=== PATIENT | male | born 1980 | race Caucasian/White ===

== ENCOUNTER 2016-05-13 21:22 | Inpatient (IN) | payer MEDICARE ==
--- NOTE | ~2016-05-13 | CN ---
Consultation Report [facility] [address] [place]. [address] NAME: MITCHELL ZURITA : 78 STATUS : ADM Jose PAT#: [id number] AGE: 36 ADM/REG DATE : 05/13/16 MR#: [id number] REPORT SERV DATE: 05/15/16 DICTATED BY: MADI GOMEZ DATE: 05/14/16 REPORT STATUS : Draft TRANSCRIBED BY: MODCatherine DATE: 05/14/16 INFECTIOUS DISEASE CONSULT DATE OF CONSULTATION: REASON FOR CONSULT: Left foot cellulitis. HISTORY OF PRESENT ILLNESS: A 36 years old white male, with ftw-dj-uontuen diabetes and diabetic neuropathy, hypertension, transferred from [facility] ER for left foot cellulitis and left leg lymphangitis. He has had initially left second toe swelling, redness, and pain. He saw his PCP who treated him with indomethacin for possible gout. He might have had an ultrasound for DVT. He had progressive pain and then erythema and swelling of the left foot and then lymphangitic streak up the medial leg. He went to the ER at [facility] yesterday, had an x-ray of the foot that showed cellulitis and second toe proximal interphalangeal joint fusion. Lab work showed a lactic acid of 2.5, WBC 11, creatinine 1.0, acetone was negative. He was given vancomycin and maybe Zosyn there. He was then transferred here, and he was continued on vancomycin and Zosyn. Some cultures were done from the left second toe. He states he did not have any wound but it started draining yesterday, and he has had a callus on the plantar aspect of the toe. He reported no fever, but he had some nausea and maybe some softer stools. No shortness of breath. No urinary symptoms. He scratches his upper arms. PAST MEDICAL HISTORY: As I mentioned above plus prior left fibula ORIF, and umbilical hernia surgery. SOCIAL HISTORY: He is disabled. He is , has a child. He continues to smoke. He does not abuse alcohol or use drugs. FAMILY HISTORY: Not obtained yet. ALLERGIES: NONE. MEDICATIONS: At admission Xanax twice a day, Amorita as needed, indomethacin, insulin, lisinopril, and Remeron at bedtime. PHYSICAL EXAMINATION: GENERAL: He is alert, awake. HEENT: He has some oral mucosa erythema. LUNGS: Clear to auscultation. No wheezes, rhonchi, or rales. HEART: Regular rate and rhythm. ABDOMEN: Obese, soft, nontender. EXTREMITIES: Right foot without any lesions. Left foot; the lymphangitic streak resolved. He has a weak but palpable left dorsalis pedis and posterior tibial pulses. He has erythema with purpuric appearance of the left foot dorsum. Left second toe is swollen. The distal Consultation Report [address] [place]. [address] NAME: MITCHELL ZURITA : 78 STATUS : ADM Jose PAT#: [id number] AGE: 36 ADM/REG DATE : 05/13/16 MR#: [id number] REPORT SERV DATE: 05/15/16 DICTATED BY: MADI GOMEZ DATE: 05/14/16 REPORT STATUS : Draft TRANSCRIBED BY: ESTEPHANIA DATE: 05/14/16 portion of the toe has epidermal undermining with purulent material draining from there. His plantar callus, I cannot express any purulence around the callus. LABORATORY DATA: Lab work here procalcitonin 0.08, creatinine 0.7. Liver enzymes within normal limits. WBC 10, A1c almost 14. Urinalysis; no white blood cells, few bacteria. ASSESSMENT AND PLAN: 1. Left second toe cellulitis with the entire distal toe skin undermining by purulence and a plantar callus. 2. Left foot dorsum cellulitis. 3. Left leg lymphangitis which appears resolved. 4. Uyo-gt-ydlcbgs diabetes. 5. History of left ankle open reduction internal fixation, done remotely. At this point, it is hard to tell if this is a superficial skin infection or if there is any deep involvement of the joints and bone. He will probably need further imaging and maybe even surgical evaluation. He was started on vancomycin and Zosyn which is very broad- spectrum but hopefully we could further narrow it down based on wound cultures. I am not convinced anaerobic coverage is needed at this point. Of course, the patient is strongly advised about diabetes and glycemic control. WILLARD/ESTEPHANIA Madi Gomez M.D. / [id number] CC: Lacy Machado
--- NOTE | ~2016-05-13 | DS ---
Discharge Summary [address] [place]. [address] NAME: MITCHELL ZURITA : 78 STATUS : DIS IN PAT#: [id number] AGE: 36 ADM/REG DATE : 05/14/16 MR#: [id number] REPORT SERV DATE: 05/19/16 DICTATED BY: WALLACE MONTALVO DATE: 05/19/16 REPORT STATUS : Draft TRANSCRIBED BY: MODL DATE: 05/19/16 ADMISSION DATE: 05/14/2016 DISCHARGE DATE: 05/19/2016 DISCHARGE DIAGNOSES: 1. Left second toe diabetic infection. 2. Left lower extremity cellulitis. 3. Acute kidney injury, creatinine gradually worsened during the hospital stay, from 0.7 to 1.3, but the patient has good urine output. 4. Sepsis, present on admission, resolved. 5. Hypertension. 6. Uncontrolled diabetes type 2. 7. Peripheral neuropathy. 8. Smoking. CONSULTS: 1. Infectious Disease, Dr. Madi Richardson. 2. Orthopedic Surgery, Dr. Brian Larson. PROCEDURES: Bedside I and D on 05/16/2016 and 05/18/[address] Larson. HOSPITAL COURSE: This is a 36-year-old gentleman with history of uncontrolled diabetes type 2, hypertension, and smoking, who was admitted to the hospital with a diabetic left lower extremity cellulitis and infection. Please note, that I assumed care of this patient on the day of discharge. There is an excellent interim discharge summary that was dictated by our nurse practitioner, BONI Parrish. Please refer to her interim discharge summary for further details. In summary, the patient was admitted and was started on empiric antibiotics, IV Vanco and Zosyn. Throughout the hospital stay, the patient had two bedside I and D's. The wound culture of the foot was positive for strep salivarius. The patient was seen by Infectious Disease who recommended switching the antibiotics to IV Rocephin. After bedside I and D, yesterday it was felt that the patient is ready for discharge home with close outpatient followup plans. The patient is now being discharged home with home health with close outpatient followup and wound care. The patient will be maintained on p.o. Duricef for 19 additional days. Also, the patient was admitted with very poorly controlled diabetes. The patient is now being discharged with Levemir instead of the Lantus as well as sliding scale NovoLog. The patient is to follow up with Dr. Larson as well as Wound Care and PCP for close outpatient followup. DISCHARGE MEDICATIONS: 1. Please see med rec. Namely the patient was noncompliant with Lantus and the patient's insurance will pay for Levemir and thus the patient's long-acting insulin was switched to Levemir. 2. Duricef 1 g p.o. b.i.d. x19 additional days. DISPOSITION: Home with home health. Discharge Summary [address] [facility]. [address] NAME: MITCHELL ZURITA : 78 STATUS : DIS IN PAT#: [id number] AGE: 36 ADM/REG DATE : 05/14/16 MR#: [id number] REPORT SERV DATE: 05/19/16 DICTATED BY: WALLACE MONTALVO DATE: 05/19/16 REPORT STATUS : Draft TRANSCRIBED BY: ESTEPHANIA DATE: 05/19/16 FOLLOWUP: 1. Please follow up with Dr. Larson as instructed. 2. Please follow up with PCP in the next one to two weeks. 3. Please follow up with Wound Care as scheduled. A total of 25 minutes spent in coordinating this patient's discharge today. NBA/ESTEPHANIA Wallace Montalvo MD / [id number] CC: MD Iggy Gore II, PAC
--- NOTE | ~2016-05-13 | CN ---
Consultation Report [facility] [address] [place]. [address] NAME: MITCHELL ZURITA : 78 STATUS : ADM IN PAT#: [id number] AGE: 36 ADM/REG DATE : 05/14/16 MR#: [id number] REPORT SERV DATE: 05/17/16 DICTATED BY: PAN EMERSON DATE: 05/16/16 REPORT STATUS : Draft TRANSCRIBED BY: ESTEPHANIA DATE: 05/16/16 ORTHOPEDIC FOOT AND ANKLE CONSULTATION. DATE OF CONSULTATION: 05/16/2016 REASON FOR CONSULTATION: Left foot second toe plantar foot ulceration. HOSPITAL COURSE: Mitchell Zurita is a pleasant 36-year-old white male with past medical history significant for poorly controlled diabetes mellitus with peripheral neuropathy and active smoking. He developed a left foot cellulitis and left leg lymphangitis. It was seen in the [facility] ER prior to his admission to [facility]. He stated that the left second toe was "bigger than my big toe." He saw his primary care doctor, who suspected possible gout. He was placed on indomethacin. Due to the progressive pain and erythema, he was seen at the [facility] Emergency Room where he was given vancomycin and Zosyn. He was transferred to [facility] for definitive treatment. He was continued on vancomycin and Zosyn at the [facility]. Cultures were done from the left second toe. He states the toe started draining on 05/13/2016. He also states he has had a chronic callus of the second toe. REVIEW OF SYSTEMS: He was in his usual state of health at the time of the evaluation today. He denies fevers, chills, nausea, vomiting, abdominal pain, shortness of breath, or chest pain. PAST MEDICAL HISTORY: See above. PRIOR SURGICAL HISTORY: Left fibula ORIF, left second toe PIP arthrodesis, and umbilical hernia. SOCIAL HISTORY: He is disabled. He is and has a child. He continues to smoke. Does not abuse alcohol or use drugs. FAMILY HISTORY: Noncontributory. ALLERGIES: NO KNOWN DRUG ALLERGIES. MEDICATIONS: Xanax, [place] as needed, indomethacin, insulin, lisinopril, and Remeron. PHYSICAL EXAMINATION: GENERAL: Reveals an age-appropriate male, lying comfortably in his hospital bed. He is alert and oriented x3. VITAL SIGNS: His temperature is 97.6. Vital signs reveal pulse of 82 and respirations of 20. His BMI is 31.9. HEENT: Head is atraumatic. Eyes, pupils are equal to light and reactive. NECK: Nontender with full range of motion. CHEST: Nonlabored breathing. Consultation Report [facility] [address] [place]. [address] NAME: MITCHELL ZURITA : 79 STATUS : ADM IN [facility]#: [id number] AGE: 36 ADM/REG DATE : 05/14/16 MR#: [id number] REPORT SERV DATE: 05/17/16 DICTATED BY: PAN EMERSON DATE: 05/16/16 REPORT STATUS : Draft TRANSCRIBED BY: ETSEPHANIA DATE: 05/16/16 HEART: Regular rate. ABDOMEN: Nontender and nonobese. EXTREMITIES: Bilateral upper extremities nontender to full active and passive range of motion. Right lower extremity, no skin lesions. Gentle range of motion of the right hip, knee, ankle, and foot is nontender. No open skin lesions. No lymphatic streaking. Left lower extremity reveals purulent drainage surrounding his left second toe. It seems to be coming from a plantar ulcer on the plantar surface of his foot. The toe is erythematous and edematous. The large amount of skin is peeling off the dorsal and plantar aspects of the toe. No additional skin abnormalities are seen in any of the remaining toes. The PIP joint is clinically fused. The toe is tender to palpation. Cap refill is less than 2 seconds. Dorsalis pedis and posterior tibial pulses are palpable. LABORATORY DATA: Lab work reveals a white count of 8.5 and hemoglobin is 13.6. X-ray: Foot x-ray taken on 05/16/2016 is negative for osteomyelitis. He has had prior PIP arthrodesis. Prior fibular ORIF. Wound culture on two separate wound cultures taken on 05/14/2016, first one was positive for Staph and second one was positive for gram-positive cocci. Final culture results are pending. Blood cultures were negative day 1. IMPRESSION: 1. Left second toe plantar diabetic foot ulceration. 2. Smoking. 3. Peripheral neuropathy. PLAN: A lengthy discussion with the patient regarding his diagnosis and treatment options. We recommended irrigation and debridement at the bedside. All of his questions were answered and he wished to proceed. We also had a lengthy discussion with Mr. Zurita regarding the seriousness of this condition. We advised him to quit smoking immediately to improve his chances of successful healing. We talked about care of the diabetic foot. We stated that we will place him in a postoperative shoe and allow him to be limited weightbearing in the shoe. Close followup will need to be maintained with this patient. Thank you for the opportunity to participate in the care of this patient. Please refer to my operative dictation for details of the plantar foot irrigation and debridement. The foot was debrided and an Aquacel Ag dressing was placed. We recommended additional thoughts and recommendations from the wound care nurse. We have ordered a postop shoe. I would like for him to see me in my office next week for additional evaluation and treatment. My business card and phone numbers were left on the chart. Thanks for the opportunity to participate in the care of this patient. Please feel free to call me on my cell phone at [phone] with additional questions or concerns. Consultation Report [address] [place]. [address] NAME: MICTHELL ZURITA : 78 STATUS : ADM IN PAT#: [id number] AGE: 36 ADM/REG DATE : 05/14/16 MR#: [id number] REPORT SERV DATE: 05/17/16 DICTATED BY: PAN EMERSON DATE: 05/16/16 REPORT STATUS : Draft TRANSCRIBED BY: ESTEPHANIA DATE: 05/16/16 MMJeanne/ESTEPHANIA Pan Emerson MD / [id number] CC: Lacy Cartagena MD
--- NOTE | ~2016-05-13 | IDS ---
Interim Discharge Summary [facility] [address] [place]. [address] NAME: MITCHELL ZURITA : 78 STATUS : ADM IN [facility]#: [id number] AGE: 36 ADM/REG DATE : 05/14/16 MR#: [id number] REPORT SERV DATE: 05/19/16 DICTATED BY: KENTRELL THAPA DATE: 05/19/16 REPORT STATUS : Draft TRANSCRIBED BY: MODL DATE: 05/19/16 ADMISSION DATE: 05/14/2016 DISCHARGE DATE: The patient was admitted to the Hospitalist Service. CONSULTANTS: 1. Infectious Disease, Dr. Madi Richardson. 2. Orthopedics, Dr. Brian Larson. CURRENT INTERIM DIAGNOSES: 1. Left foot second toe ulcer. 2. Left lower extremity cellulitis. 3. Acute kidney injury. 4. Sepsis syndrome, resolved, present on arrival. 5. Hypertension. 6. Diabetes mellitus type 2, uncontrolled with hyperglycemia. 7. Peripheral neuropathy. 8. Nicotine dependence. PROCEDURES: 1. 05/16/2016 bedside I and D per Dr. Larson of the left second toe plantar ulceration. 2. 05/18/2016 I and D at the bedside left second toe plantar ulceration. IMAGIN05/16/2016 left foot x-ray revealed no evidence of acute left foot abnormality. LABORATORY STUDIES: 1. 05/18/2016 basic metabolic panel revealed a sodium of 144, potassium 4.3, chloride 107, CO2 of 28, BUN 14, creatinine 1.34, GFR 67, glucose 194, calcium 8.8, magnesium 2.2. 2. 05/18/2016 CBC revealed white count of 8.9, RBC 4.43, hemoglobin 12.5, hematocrit 38.1, platelets 294,000. 3. Wound culture from the second toe left foot showed sparse growth of Strep salivarius. HISTORY OF PRESENT ILLNESS: For complete history, please refer to admission H and P by Dr. Patric Diane. Briefly, Mr. Zurita is a 36-year-old male, who transferred to [facility] from [facility] with complaints of left foot pain and swelling with any noticeable red streak going up his leg. In the emergency room at [facility], he was noted to have cellulitis of the left foot and leg with a diabetic ulcer on his second toe along with hyperglycemia and a blood glucose level of 526. He was transferred to [facility] for admission to the Hospitalist Service. HOSPITAL COURSE: Mr. Zurita was admitted to a Med/Surg telemetry bed with diagnosis of a diabetic left foot ulcer and cellulitis of the left leg, diabetes with hyperglycemia, and hypertension. He was provided with 1500 calorie ADA diet. Lab work along with blood cultures x2 were obtained. Wound culture from the left foot was done initially. He was also given lactated Ringer's 1 L bolus and then 1/2 normal saline at 150 mL/h. He was given Interim Discharge Summary [facility] [address] [facility] [place]. [address] NAME: MITCHELL ZURITA : 78 STATUS : ADM IN [facility]#: [id number] AGE: 36 ADM/REG DATE : 05/14/16 MR#: [id number] REPORT SERV DATE: 05/19/16 DICTATED BY: KENTRELL THAPA DATE: 05/19/16 REPORT STATUS : Draft TRANSCRIBED BY: ESTEPHANIA DATE: 05/19/16 DVT prophylaxis with heparin 5000 units subcu t.i.d. He was provided with antiemetics and sliding scale insulin. His home medications were continued with the exception of Indocin. IV vancomycin and IV Zosyn were also ordered. Mr. Zurita was seen in consultation by Dr. Madi Richardson on 05/14/2016. A consult was placed to Dr. Monroe Henderson, the [facility]; however, the patient was seen by Dr. Brian Larson on 05/16/2016. He did have a procalcitonin level of 0.08 and a lactate level of 0.9 along with urinalysis on admission that was negative. Upon my initial evaluation of Mr. Zurita on 05/14/2016, he denied any pain in his foot or leg. He denied chest pain or shortness of breath. The only complaint he had is being hungry, therefore his 1500 calorie ADA diet was increased to 1800 calories. Mr. Zurita stated that he was seen in his primary care provider's office prior to presenting [facility]. In his primary care provider's office, he was treated for gout in his foot and given indomethacin. Over the next couple of days, his insulin was adjusted. He was seen by the tobacco prevention health educator and his A1c came back at 13.9. In addition to his nighttime basal insulin dose, I added a morning basal insulin dose. On 05/16/2016, Dr. Brian Larson performed I and D at the bedside of the patient's left foot second toe plantar ulceration. The patient required no local anesthetics as his sensation in both lower extremities and feet is severely diminished. On the evening of the 05/16/2016, Dr. Richardson discontinued IV Zosyn and added Rocephin 1 g IV daily. On 05/17/2016, upon my assessment Mr. Kidds creatinine increased overnight from 0.78 to 1.31. With this acute kidney injury, his LUCY inhibitor was discontinued. His insulin continued to be adjusted. Hydralazine 10 mg IV q.4h p.r.n. was added. On 05/17/2016, Dr. Richardson discontinued his IV vancomycin. On the afternoon of 05/18/2016, Dr. Larson once again did an I and D at the bedside of the second left toe. Mr. Zurita again tolerated without any local anesthesia. Per Dr. Larson, Mr. Zurita was okay for discharge home and follow up with him in the office in seven to ten days. Dr. Richardson recommended Duricef as the choice of oral antibiotic for Mr. Zurita. Again on 05/18/2016, Mr. Porras creatinine bump up even further from 1.31 to 1.34. Even though his LUCY inhibitor was held, his urine output was excellent. He had no new complaints. I did give him IV fluids normal saline at 100 mL/h x1 L. I did ask the nurses to go ahead and prepare for discharge and schedule followup appointments with Dr. Brian Larson orthopedic and the patient's primary care provider, Iggy Knutson. I have also requested home health care for dressing changes to the second toe left foot. Mr. Zurita is to wear postop shoe when ambulating. So at this time, disposition is pending. I have ordered a repeat basic metabolic panel for the morning to watch his creatinine. Again, his insulin has been adjusted. He will need prescriptions for Levemir and NovoLog 90 day supply at discharge as his insurance covers both of these according to the tobacco prevention health educator. His insurance does not cover Lantus. He may need another antihypertensive if his creatinine does not trend downward, but at this time disposition is home with home health care and follow up with orthopedics and primary care. RADHA/ESTEPHANIA Angela Thaap [facility] Interim Discharge Summary [address] [place] [address] NAME: MITCHELL ZURITA : 78 STATUS : ADM IN PAT#: [id number] AGE: 36 ADM/REG DATE : 05/14/16 MR#: [id number] REPORT SERV DATE: 05/19/16 DICTATED BY: KENTRELL THAPA DATE: 05/19/16 REPORT STATUS : Draft TRANSCRIBED BY: ESTEPHANIA DATE: 05/19/16 / [id number] CC: MD Eamon Gore Max Russell II
--- NOTE | ~2016-05-13 | OP ---
Record Of Operation [facility] [address] [place]. [address] NAME: MITCHELL ZURITA : 78 STATUS : ADM IN PAT#: [id number] AGE: 36 ADM/REG DATE : 05/14/16 MR#: [id number] REPORT SERV DATE: 05/16/16 DICTATED BY: PAN EMERSON DATE: 05/16/16 REPORT STATUS : Draft TRANSCRIBED BY: ESTEPHANIA DATE: 05/16/16 DATE OF PROCEDURE: 05/16/2016 PREOPERATIVE DIAGNOSES: 1. Left second toe plantar diabetic foot ulceration. 2. Diabetes mellitus with neuropathy, poorly controlled. 3. Chronic smoker. POSTOPERATIVE DIAGNOSES: 1. Left second toe plantar diabetic foot ulceration. 2. Diabetes mellitus with neuropathy, poorly controlled. 3. Chronic smoker. PROCEDURE: Irrigation and debridement down to the bone of left second toe. ANESTHESIA: None. COMPLICATIONS: None. INDICATION FOR OPERATION: Mitchell Zurita is a pleasant 36-year-old male with history of a left second toe plantar diabetic foot ulceration. Risks and benefits of the above-mentioned surgery were all discussed at length with the patient. All of his questions were answered and he wished to proceed. DESCRIPTION OF PROCEDURE: The patient's left foot was prepped and draped in the usual sterile fashion with Betadine paint. Surgical instruments were utilized including a #15 blade scalpel, surgical pickups and surgical scissors. We performed irrigation and debridement of the left second toe. He had redundant skin on the dorsal and plantar surface of the foot. All of this was removed. Revealed a plantar ulceration at the level of the DIP joint. This was approximately 1 cm in diameter. This was full thickness and involved skin, subcutaneous tissue, and deep tissues down to the tendon. Did not appear to be any active bone or joint involvement. This was a deep debridement down to the deep tissues including periosteum and deep tendon. Irrigation and sequential debridement were performed until all necrotic and devitalized tissue had been removed. Once completed, an Aquacel Ag bulky sterile dressing was applied. The patient tolerated this procedure without difficulty. He remained awake throughout the procedure, and due to his peripheral neuropathy, no anesthetic was necessary. MELODIE/ESTEPHANIA Pan Emerson MD / [id number] Record Of Operation [address] [place] [address] NAME: MITCHELL ZURITA : 78 STATUS : ADM IN PAT#: [id number] AGE: 36 ADM/REG DATE : 05/14/16 MR#: [id number] REPORT SERV DATE: 05/16/16 DICTATED BY: PAN EMERSON DATE: 05/16/16 REPORT STATUS : Draft TRANSCRIBED BY: MODL DATE: 05/16/16 CC: Lacy Cartagena M.D.
--- NOTE | ~2016-05-13 | HP ---
History And Physical [id number] [facility] [place]. [address] NAME: MITCHELL ZURITA : 78 STATUS : ADM Jose PAT#: [id number] AGE: 36 ADM/REG DATE : 05/13/16 MR#: [id number] REPORT SERV DATE: 05/14/16 DICTATED BY: PATRIC URRUTIA DATE: 05/14/16 REPORT STATUS : Draft TRANSCRIBED BY: MODL DATE: 05/14/16 DATE OF ADMISSION: 05/13/2016 CHIEF COMPLAINT: This is a 36-year-old, male, who I had accepted in transfer from [facility] after I spoke with Ms. Leanne Singh the physician's store assistant in the emergency room there. HISTORY OF PRESENT ILLNESS: Briefly, Mr. Zurita had redness and swelling developed in his left foot about a week or so ago. He saw his primary care physician or their mid-level provider who did an ultrasound of his lower extremities, determined there was no DVT and started him on indomethacin for presumed treated diagnosis of gout. Mr. Zurita took this treatment for a week but in the meantime he watched his foot swell up that was also on the second digit or second toe and he saw red line streaking up his leg as well. He also started experiencing pain in the foot and became very concerned. He decided to go to the emergency room at [facility] to have this evaluated. In the emergency room at [facility] according to Ms. Leanne Singh, he appeared to have cellulitis of the leg and foot, a diabetic foot ulcer and his blood sugar was 526 upon arrival. His workup did not reveal any ketones or acetone in the blood. His lactate was 2.5. He had white count of 11.6. X-ray of the foot did not show any osteomyelitis. He had reported elevated temperatures at home as well. He was given IV fluids and insulin, vancomycin and Zosyn for antibiotics. Current vitals prior to his transfer here were 127/70, heart rate of 112, respirations 18 a minute, room air saturations were 95%. His temperature was 98.3. At the time of my evaluation here Mr. Zurita denied any chest pain, palpitations, or orthopnea. He had no cough, hemoptysis, night sweats, or weight loss. He denied any recent falls, loss of consciousness. He does not have any recollection of chills at home but did have elevated temperatures. He denied any nausea, vomiting, diarrhea, hematemesis, hematochezia or hematuria or dysuria. No other history of recent travel or exposures other than those mentioned above. PAST MEDICAL HISTORY: Significant for history of chronic pain, diabetes mellitus, diabetic neuropathy, and hypertension. SOCIAL HISTORY: He does not drink alcohol or use recreational drugs. He has about 20-pack year history of smoking, continues to do so. He is currently disabled due to his neuropathy he has faced. FAMILY HISTORY: Noncontributory. MEDICATIONS: His medications at home were reviewed by me in the chart today and reordered by me. REVIEW OF SYSTEMS: As in history of present illness. All other systems were reviewed in detail and quite unremarkable. History And Physical [address] [place]. [address] NAME: MITCHELL ZURITA : 78 STATUS : ADM Jose PAT#: [id number] AGE: 36 ADM/REG DATE : 05/13/16 MR#: [id number] REPORT SERV DATE: 05/14/16 DICTATED BY: PATRIC URRUTIA DATE: 05/14/16 REPORT STATUS : Draft TRANSCRIBED BY: ESTEPHANIA DATE: 05/14/16 PHYSICAL EXAMINATION: GENERAL: This is a pleasant, 36-year-old, not in any acute distress. HEENT: His head is atraumatic, normocephalic. He is alert, awake, oriented to time, place, and person. Pupils are equal, reacting to light and accommodating. External ocular muscles are intact. Membranes are moist and pink. Sclerae nonicteric. NECK: Supple with no jugular venous distention, lymphadenopathy, or thyromegaly. LUNGS: Clear to auscultation with no wheezes, rubs, or crackles. HEART: Heart sounds were regular with no murmurs, rubs, or gallops. ABDOMEN: Soft, nontender. Bowel sounds are present. EXTREMITIES: Showed swelling in his left foot with redness and an ulcer in the second toe. His leg also shows streaking all the way up to his knees. There is increased warmth and pain to palpation as well. The right lower extremity shows no edema. There is no cyanosis or clubbing in the extremities. NEURO: Exam is grossly intact. No focal, sensory or motor deficits. Higher functions appeared intact. He was able to move all four extremities. VITAL SIGNS: His temperature today was 98.5 upon arrival here, pulse 94, respirations 14 a minute, blood pressure was 141/61, oxygen saturations were 94% breathing 2 L of oxygen via nasal cannula. DATA: Laboratory data and other data were reviewed by me from the records which accompanied the patient from [facility] some of which have been described above. IMPRESSION: 1. Diabetic foot ulcer. 2. Cellulitis of left lower extremity. 3. Sepsis. 4. Hyperglycemia. 5. Hypertension. 6. Chronic pain. PLAN: We will admit Mr. Zurita to the Hospitalist Service to a Med/Surg Telemetry Bed for a 24-hour observation period. After cultures are obtained, we will start him on empiric IV antibiotics, Zosyn and vancomycin. We will check his procalcitonin level. We will start him on IV fluids, start him with a bolus of lactated Ringer's and continue maintenance therapy. We will also start him on insulin per sliding scale. His blood sugars upon arrival here had come down to 256. We will also get Infectious Disease consultation on him. We will continue pain control here. The patient is already requesting Dilaudid. He will be on unfractionated heparin for DVT prophylaxis and we will continue his other medications. I have discussed above plans with the patient. His questions were answered and he is agreeable to the above recommendations. Hospitalist Service will be following him during his stay here. /ESTEPHANIA Patric Urrutia, History And Physical [address] [address] NAME: MITCHELL ZURITA : 78 STATUS : ADM Jose PAT#: [id number] AGE: 36 ADM/REG DATE : 05/13/16 MR#: [id number] REPORT SERV DATE: 05/14/16 DICTATED BY: PATRIC URRUTIA DATE: 05/14/16 REPORT STATUS : Draft TRANSCRIBED BY: ESTEPHANIA DATE: 05/14/16 Lacy / [id number] CC: Montana Pan M.D.
[~2016-05-13 21:22] MED LIST: LANTUSCART SC; NORCO1 TAB PO; XANAX1 MG PO; ZOFRAN8 PO
[2016-05-13] MEDS ORDERED: PRIN20 PO (21:48)
[2016-05-13] MEDS ORDERED: INDO50 PO (21:50)
[2016-05-13] MEDS ORDERED: REMERON45 MG PO (21:53)
[2016-05-14 06:45] LABS: BASOPHILS 0.3 %; BASOPHILS ABSOLUTE 0.03 10/3/uL (0.0-0.16); EOSINOPHILS 2.3 %; EOSINOPHILS ABSOLUTE 0.23 10/3/uL (0.0-0.53); HEMATOCRIT 36.6 % (40.0-51.0); HEMOGLOBIN 12.7 g/dL (13.6-17.8); IMMATURE GRANULOCYTES 0.3 %; IMMATURE GRANULOCYTES ABSOLUTE 0.03 10/3/uL (0.0-0.11); LYMPHOCYTES ABSOLUTE 3.19 10/3/uL (0.67-4.30); MANUAL DIFF NO %; MEAN CORPUS HGB CONC 34.7 g/dL (32.0-36.0); MEAN CORPUSCULAR HEMOGLOB 29.2 pg (26.0-34.0); MEAN CORPUSCULAR VOLUME 84.1 fL (80-100); MEAN PLATELET VOLUME 10.3 fL (9.2-13.0); MONOCYTES 8.2 %; MONOCYTES ABSOLUTE 0.82 10/3/uL (0.21-1.20); NEUTROPHILS 56.9 %; NEUTROPHILS ABSOLUTE 5.67 10/3/uL (2.02-8.40); PLATELET COUNT 281 10/3/uL (150-400); RBC DISTRIBUTION WIDTH 12.3 % (12.0-16.0); RED CELL COUNT 4.35 10/6/uL (4.7-6.1)
[2016-05-14 07:03] LABS: CALCIUM, SERUM 8.3 MG/DL (8.5-10.4); CHLORIDE, SERUM 104 MMOL/L (96-112); CO2 (CARBON DIOXIDE) 26 MMOL/L (24-34); CREATININE 0.71 MG/DL (0.70-1.30); GFR AFRICAN AMERICAN 139 ML/MIN (>=60); GFR NON AFRICAN AMERICAN 120 ML/MIN (>=60); PHOSPHORUS, SERUM 3.2 MG/DL (2.5-4.5); POTASSIUM, SERUM 3.7 MMOL/L (3.5-5.3); SGOT(AST) 9 U/L (5-40); SGPT(ALT) 15 U/L (5-65); SODIUM, SERUM 141 MMOL/L (135-148); TOTAL BILIRUBIN 0.4 MG/DL (0-1.2); TOTAL PROTEIN 6.3 G/DL (6.0-8.5)
[2016-05-14 07:04] LABS: A/G RATIO 0.8 (0.7-1.9); ALBUMIN 2.8 G/DL (3.5-5.0); ALKALINE PHOSPHATASE 105 U/L (45-117); BUN (BLOOD UREA NITROGEN) 11 MG/DL (6-23); GLOBULIN 3.5 G/DL (2.5-4.1); GLUCOSE, SERUM 192 MG/DL (60-99)
[2016-05-14 07:54] LABS: PROCALCITONIN 0.08 ng/mL (<0.5)
[2016-05-14 08:09] LABS: ASCORBIC ACID (UR NOT ORDER) NEG (NEG); BILIRUBIN, URINE NEGATIVE (NEG); KETONE, URINE NEGATIVE (NEG); LEUKOCYTE ESTERASE(NOT OR NEG (NEG); WBC (NOT ORDERED) (RFLEX) < 1 (0-5)
[2016-05-15 07:21] LABS: BASOPHILS 0.3 %; BASOPHILS ABSOLUTE 0.02 10/3/uL (0.0-0.16); EOSINOPHILS 3.7 %; EOSINOPHILS ABSOLUTE 0.27 10/3/uL (0.0-0.53); HEMATOCRIT 37.3 % (40.0-51.0); HEMOGLOBIN 12.7 g/dL (13.6-17.8); IMMATURE GRANULOCYTES 0.6 %; IMMATURE GRANULOCYTES ABSOLUTE 0.04 10/3/uL (0.0-0.11); LYMPHOCYTES 37.7 %; LYMPHOCYTES ABSOLUTE 2.73 10/3/uL (0.67-4.30); MANUAL DIFF NO %; MEAN CORPUSCULAR HEMOGLOB 28.6 pg (26.0-34.0); MEAN PLATELET VOLUME 10.5 fL (9.2-13.0); MONOCYTES 7.7 %; MONOCYTES ABSOLUTE 0.56 10/3/uL (0.21-1.20); NEUTROPHILS ABSOLUTE 3.62 10/3/uL (2.02-8.40); PLATELET COUNT 280 10/3/uL (150-400); RBC DISTRIBUTION WIDTH 12.2 % (12.0-16.0); RED CELL COUNT 4.44 10/6/uL (4.7-6.1); WHITE BLOOD CELLS 7.2 10/3/uL (4.5-10.5)
[2016-05-15 08:40] LABS: PROCALCITONIN <0.05 ng/mL (<0.5)
[2016-05-16 07:00] LABS: BASOPHILS 0.2 %; BASOPHILS ABSOLUTE 0.02 10/3/uL (0.0-0.16); EOSINOPHILS 3.2 %; EOSINOPHILS ABSOLUTE 0.27 10/3/uL (0.0-0.53); HEMOGLOBIN 13.6 g/dL (13.6-17.8); IMMATURE GRANULOCYTES 0.7 %; IMMATURE GRANULOCYTES ABSOLUTE 0.06 10/3/uL (0.0-0.11); LYMPHOCYTES 30.7 %; MEAN CORPUSCULAR HEMOGLOB 28.4 pg (26.0-34.0); MEAN CORPUSCULAR VOLUME 83.5 fL (80-100); MEAN PLATELET VOLUME 10.3 fL (9.2-13.0); MONOCYTES 7.1 %; NEUTROPHILS 58.1 %; NEUTROPHILS ABSOLUTE 4.92 10/3/uL (2.02-8.40); PLATELET COUNT 333 10/3/uL (150-400); RBC DISTRIBUTION WIDTH 12.3 % (12.0-16.0); RED CELL COUNT 4.79 10/6/uL (4.7-6.1); WHITE BLOOD CELLS 8.5 10/3/uL (4.5-10.5)
[2016-05-16 07:02] LABS: MANUAL DIFF NO %
[2016-05-16 07:40] LABS: CALCIUM, SERUM 8.9 MG/DL (8.5-10.4); CHLORIDE, SERUM 107 MMOL/L (96-112); CO2 (CARBON DIOXIDE) 29 MMOL/L (24-34); CREATININE 0.78 MG/DL (0.70-1.30); GFR AFRICAN AMERICAN 134 ML/MIN (>=60); GFR NON AFRICAN AMERICAN 115 ML/MIN (>=60); POTASSIUM, SERUM 3.8 MMOL/L (3.5-5.3); SODIUM, SERUM 143 MMOL/L (135-148); VANCOMYCIN TROUGH 16.1 MCG/ML (10.0-20.0)
[2016-05-16 07:41] LABS: BUN (BLOOD UREA NITROGEN) 6 MG/DL (6-23); GLUCOSE, SERUM 114 MG/DL (60-99)
[2016-05-17 05:43] LABS: BASOPHILS 0.4 %; BASOPHILS ABSOLUTE 0.03 10/3/uL (0.0-0.16); EOSINOPHILS 3.5 %; EOSINOPHILS ABSOLUTE 0.28 10/3/uL (0.0-0.53); HEMATOCRIT 37.9 % (40.0-51.0); HEMOGLOBIN 12.6 g/dL (13.6-17.8); IMMATURE GRANULOCYTES 0.6 %; IMMATURE GRANULOCYTES ABSOLUTE 0.05 10/3/uL (0.0-0.11); LYMPHOCYTES ABSOLUTE 2.59 10/3/uL (0.67-4.30); MEAN CORPUS HGB CONC 33.2 g/dL (32.0-36.0); MEAN CORPUSCULAR HEMOGLOB 28.5 pg (26.0-34.0); MEAN CORPUSCULAR VOLUME 85.7 fL (80-100); MEAN PLATELET VOLUME 10.3 fL (9.2-13.0); MONOCYTES 9.1 %; MONOCYTES ABSOLUTE 0.74 10/3/uL (0.21-1.20); NEUTROPHILS 54.4 %; NEUTROPHILS ABSOLUTE 4.41 10/3/uL (2.02-8.40); PLATELET COUNT 295 10/3/uL (150-400); RBC DISTRIBUTION WIDTH 12.5 % (12.0-16.0); RED CELL COUNT 4.42 10/6/uL (4.7-6.1); WHITE BLOOD CELLS 8.1 10/3/uL (4.5-10.5)
[2016-05-17 05:47] LABS: BUN (BLOOD UREA NITROGEN) 9 MG/DL (6-23); CALCIUM, SERUM 8.6 MG/DL (8.5-10.4); CHLORIDE, SERUM 106 MMOL/L (96-112); CO2 (CARBON DIOXIDE) 27 MMOL/L (24-34); POTASSIUM, SERUM 4.1 MMOL/L (3.5-5.3); SODIUM, SERUM 143 MMOL/L (135-148)
[2016-05-17 05:49] LABS: CREATININE 1.31 MG/DL (0.70-1.30); GFR AFRICAN AMERICAN 80 ML/MIN (>=60); GFR NON AFRICAN AMERICAN 69 ML/MIN (>=60); GLUCOSE, SERUM 280 MG/DL (60-99)
[2016-05-17 05:52] LABS: MANUAL DIFF NO %
[2016-05-18 05:43] LABS: BASOPHILS 0.3 %; BASOPHILS ABSOLUTE 0.03 10/3/uL (0.0-0.16); EOSINOPHILS 3.3 %; EOSINOPHILS ABSOLUTE 0.29 10/3/uL (0.0-0.53); HEMATOCRIT 38.1 % (40.0-51.0); HEMOGLOBIN 12.5 g/dL (13.6-17.8); IMMATURE GRANULOCYTES 0.6 %; IMMATURE GRANULOCYTES ABSOLUTE 0.05 10/3/uL (0.0-0.11); LYMPHOCYTES 22.3 %; LYMPHOCYTES ABSOLUTE 1.99 10/3/uL (0.67-4.30); MEAN CORPUS HGB CONC 32.8 g/dL (32.0-36.0); MEAN CORPUSCULAR HEMOGLOB 28.2 pg (26.0-34.0); MONOCYTES 9.5 %; MONOCYTES ABSOLUTE 0.85 10/3/uL (0.21-1.20); PLATELET COUNT 294 10/3/uL (150-400); RBC DISTRIBUTION WIDTH 12.6 % (12.0-16.0); RED CELL COUNT 4.43 10/6/uL (4.7-6.1); WHITE BLOOD CELLS 8.9 10/3/uL (4.5-10.5)
[2016-05-18 05:44] LABS: MANUAL DIFF NO %
[2016-05-18 05:59] LABS: CALCIUM, SERUM 8.8 MG/DL (8.5-10.4); CHLORIDE, SERUM 107 MMOL/L (96-112); CO2 (CARBON DIOXIDE) 28 MMOL/L (24-34); CREATININE 1.34 MG/DL (0.70-1.30); GFR AFRICAN AMERICAN 78 ML/MIN (>=60); GFR NON AFRICAN AMERICAN 67 ML/MIN (>=60); POTASSIUM, SERUM 4.3 MMOL/L (3.5-5.3); SODIUM, SERUM 144 MMOL/L (135-148)
[2016-05-18 06:00] LABS: BUN (BLOOD UREA NITROGEN) 14 MG/DL (6-23); GLUCOSE, SERUM 194 MG/DL (60-99)
[2016-05-19 08:31] LABS: BASOPHILS 0.3 %; BASOPHILS ABSOLUTE 0.03 10/3/uL (0.0-0.16); EOSINOPHILS 3.3 %; EOSINOPHILS ABSOLUTE 0.32 10/3/uL (0.0-0.53); HEMATOCRIT 39.3 % (40.0-51.0); HEMOGLOBIN 13.2 g/dL (13.6-17.8); IMMATURE GRANULOCYTES 0.5 %; IMMATURE GRANULOCYTES ABSOLUTE 0.05 10/3/uL (0.0-0.11); LYMPHOCYTES 24.5 %; LYMPHOCYTES ABSOLUTE 2.35 10/3/uL (0.67-4.30); MEAN CORPUS HGB CONC 33.6 g/dL (32.0-36.0); MEAN CORPUSCULAR HEMOGLOB 28.6 pg (26.0-34.0); MEAN CORPUSCULAR VOLUME 85.1 fL (80-100); MONOCYTES 8.1 %; MONOCYTES ABSOLUTE 0.78 10/3/uL (0.21-1.20); NEUTROPHILS 63.3 %; NEUTROPHILS ABSOLUTE 6.07 10/3/uL (2.02-8.40); PLATELET COUNT 305 10/3/uL (150-400); RBC DISTRIBUTION WIDTH 12.7 % (12.0-16.0); RED CELL COUNT 4.62 10/6/uL (4.7-6.1); WHITE BLOOD CELLS 9.6 10/3/uL (4.5-10.5)
[2016-05-19 08:32] LABS: MANUAL DIFF NO %
[2016-05-19 08:48] LABS: BUN (BLOOD UREA NITROGEN) 13 MG/DL (6-23); CHLORIDE, SERUM 106 MMOL/L (96-112); CO2 (CARBON DIOXIDE) 29 MMOL/L (24-34); CREATININE 1.39 MG/DL (0.70-1.30); GFR AFRICAN AMERICAN 75 ML/MIN (>=60); GFR NON AFRICAN AMERICAN 64 ML/MIN (>=60); POTASSIUM, SERUM 4.1 MMOL/L (3.5-5.3); SODIUM, SERUM 144 MMOL/L (135-148)
[2016-05-19 08:50] LABS: GLUCOSE, SERUM 139 MG/DL (60-99)
[2016-05-19] MEDS ORDERED: NOVOLOG SC (18:16)
[2016-05-19] MEDS ORDERED: DURICEF PO (18:17)
[2016-05-19] MEDS ORDERED: LEVEMFLXPN SC ×2 (18:18→18:20)
== END 2016-05-19 18:53 | disposition home health service (06) | DRG 854 ==
LOC: 4SO 21:22
PROVIDERS: Internal Medicine Pulmonary Disease; Nurse Practitioner
PROC: 0JBR0ZZ Excision of Left Foot Subcutaneous Tissue and Fascia, Open Approach (ICD-10-PCS; principal; 2016-05-18)
DX: A41.9 Sepsis, unspecified organism (principal); N17.9 Acute kidney failure, unspecified; E11.42 Type 2 diabetes mellitus with diabetic polyneuropathy; E11.621 Type 2 diabetes mellitus with foot ulcer; L03.116 Cellulitis of left lower limb; G89.29 Other chronic pain; I10 Essential (primary) hypertension; F17.210 Nicotine dependence, cigarettes, uncomplicated; L97.529 Non-pressure chronic ulcer of other part of left foot with unspecified severity; E11.65 Type 2 diabetes mellitus with hyperglycemia; Z79.891 Long term (current) use of opiate analgesic; Z79.4 Long term (current) use of insulin; B95.5 Unspecified streptococcus as the cause of diseases classified elsewhere
CPT/HCPCS: 73630-LT; 80048; 80053; 80202; 81001; 82962; 83036; 83605; 83735; 84100; 84145; 85025; 87040; 87070; 87205; 93971; A9270-GY; G0463; J0360; J2543; J3370